=== PATIENT | male | born 1955 | race Caucasian/White ===

== ENCOUNTER → 2016-10-23 | Outpatient (CLI) | payer OTHER | LOC: BRMIMAGING 14:07 | PROVIDERS: ATTEND Internal Medicine | DX: M06.841 Other specified rheumatoid arthritis, right hand (principal); M06.842 Other specified rheumatoid arthritis, left hand; M06.872 Other specified rheumatoid arthritis, left ankle and foot; M06.871 Other specified rheumatoid arthritis, right ankle and foot; M17.12 Unilateral primary osteoarthritis, left knee | CPT/HCPCS: 73130-PO; 73562-PO; 73630-PO ==